=== PATIENT | male | born 1975 | race Caucasian/White ===

== ENCOUNTER 2024-05-10 18:07 | Inpatient (IN) | payer MEDICARE ==
[2024-05-10] MEDS ORDERED: ACETAMINOPHEN TAB 325 MG TAB PO PRN (19:00)
[2024-05-10] MEDS ORDERED: LORazepam 1 MG TAB PO PRN ×3 (19:00)
[2024-05-10] MEDS ORDERED: IBUPROFEN 600 MG TAB PO PRN (19:00)
[2024-05-10] MEDS ORDERED: MAGNESIUM HYDROXIDE 2,400 MG/30 ML CUP PO PRN (19:00)
[2024-05-10] MEDS: QUEtiapine 200 MG TAB PO SCH (21:53)
[2024-05-10] MEDS: DIVALPROEX ER 500 MG TAB.ER.24H PO SCH (21:53)
--- NOTE | 2024-05-10 22:37 | P.CONS ---
History of Present Illness - Reason for Consult Consult date: 05/10/24 medical management - History of Present Illness Patient is a 49-year-old male with a past medical history of hypertension, schizoaffective disorder and social nicotine use was transferred from [facility]. He sought care due to emotional distress regarding his father's of 10 years ago and feels that he is becoming close to feeling suicidal due to the depression and anxiety he was experiencing. He voluntarily wanted inpatient psychiatric treatment and has been without his medication on her past few days. At current, he has no medical complaints. He denies fevers, chills, tremors, weakness, headaches, LOC, chest pain, shortness of breath, or abdominal pain. Imaging: None. Laboratory evaluation: WBC 4.8, hemoglobin 12.8, hematocrit 37.4, platelet count 281, sodium 134, potassium 4.6, chloride 98, bicarb 19.3, BUN 9.7, creatinine 0.9, glucose 84, valproic acid 19.9, ethanol level 68. UDS shows positive for barbiturates and cannabinoids. Urinalysis ketones 80, trace proteins, bacteria negative, leukocyte esterase negative, nitrite negative. Review of systems: Pertinent positives and negatives as discussed in HPI, a complete review of systems was performed and all other systems are negative. Physical examination: Vital signs reviewed General: non toxic, no distress, appears at stated age Derm: no unusual rashes/lesions, warm Head: atraumatic, normocephalic, symmetric Eyes: EOMI, anicteric sclera, pupils equal round reactive to light ENT: Nose and ears atraumatic Neck: No cervical lymphadenopathy, trachea midline, supple Mouth: no lip lesion, mucus membranes moist Cardiovascular: S1S2 reg, no murmur Lungs: CTA bilateral, no rhonchi, no rales, no accessory muscle use Abdominal: soft, nontender to palpation, no guarding Ext: muscle strength 5 out of 5 in all 4 extremities grossly, no gross muscle atrophy, no contractures, positive dorsalis pedis pulse bilateral, no edema Neuro: CN II-XI grossly intact, no gross focal neuro deficits Psych: Alert, oriented Assessment/Plan: Benign essential hypertension: Norvasc 5 mg p.o. daily Metabolic acidosis due to alcohol intake: Patient denies mentioning last EtOH drink. Serum EtOH 68 bicarb 19.3. Fall precautions. Ativan per CIWA protocol. Thiamine 100 mg p.o. daily Hyponatremia due poor nutrition: Sodium 134, patient stable and asymptomatic, encourage feeding and hydration Schizoaffective disorder: Defer management to psychiatry service We appreciate being part of this patient's care. Thank you for this consult. Past Medical History Past Medical History: No Reported History History of Any Multi-Drug Resistant Organisms: None Reported Past Surgical History: No Surgical Hx Reported Past Anesthesia/Blood Transfusion Reactions: No Reported Reaction Past Psychological History: Schizoaffective Disorder Smoking Status: Current every day smoker Past Alcohol Use History: Daily Past Drug Use History: Marijuana - Past Family History Father Family Medical History: Unable to Obtain Mother Family Medical History: Unable to Obtain Medications and Allergies Home Medications Medication Instructions Recorded Confirmed Type DULoxetine HCL [Cymbalta] 30 mg PO DAILY 05/10/24 05/10/24 History Divalproex ER [Depakote ER] 500 mg PO BID 05/10/24 05/10/24 History Folic Acid 1 mg PO DAILY 05/10/24 05/10/24 History Multivitamins, Thera [Multivitamin 1 tab PO DAILY 05/10/24 05/10/24 History (formulary)] QUEtiapine FUMARATE [SEROquel] 200 mg PO HS 05/10/24 05/10/24 History QUEtiapine [SEROquel] 100 mg PO BID 05/10/24 05/10/24 History Thiamine [Vitamin B-1] 100 mg PO DAILY 05/10/24 05/10/24 History amLODIPine [Norvasc] 5 mg PO DAILY 05/10/24 05/10/24 History Allergies Allergy/AdvReac Type Severity Reaction Status Date / Time Penicillins AdvReac Unknown Verified 05/10/24 18:58 Physical Exam Vitals: Vital Signs Temp Pulse Resp BP Pulse Ox 05/10/24 20:52 98.1 F 87 18 133/70 98 Intake and Output 05/10/24 05/10/24 05/10/24 06:59 14:59 22:59 Other: Weight 78.245 kg Assessment and Plan Assessment: I have seen and evaluated the patient today. I Discussed the case with the resident and agree with the resident's findings I edited the assessment and plan as necessary as documented in the resident's note.
[2024-05-11 07:48] LABS: Basophils % (A) 1 %; Eosinophils # (A) 0.3 k/uL (0-0.7); Eosinophils % (A) 6 %; HGB 13.6 gm/dL (13.0-17.5); Lymphocytes # (A) 1.1 k/uL (1.0-4.8); Lymphocytes % (A) 27 %; MCHC 33.1 g/dL (31.0-37.0); MCV 96.9 fL (80.0-100.0); Mean Platelet Volume 7.5; Monocytes # (A) 0.3 k/uL (0-1.0); Monocytes % (A) 8 %; Neutrophils # (A) 2.4 k/uL (1.3-7.7); Neutrophils % (A) 56 %; Platelet Count 277 k/uL (150-450); RBC 4.24 m/uL (4.30-5.90); RDW 13.4 % (11.5-15.5); WBC 4.2 k/uL (3.8-10.6)
[2024-05-11 08:05] LABS: ALT 50 U/L (4-49); AST 56 U/L (17-59); African American GFR (CKD) >90 (>60 ml/min/1.73 sqM); Albumin 4.1 g/dL (3.5-5.0); Alkaline Phosphatase 58 U/L (38-126); Anion Gap 4 mmol/L; Blood Urea Nitrogen 13 mg/dL (9-20); Calcium 9.8 mg/dL (8.4-10.2); Carbon Dioxide 33 mmol/L (22-30); Chloride 104 mmol/L (98-107); Glucose 88 mg/dL (74-99); Non-African American GFR(CKD) >90 (>60 ml/min/1.73 sqM); Potassium 4.4 mmol/L (3.5-5.1); Sodium 141 mmol/L (137-145); Total Bilirubin 0.7 mg/dL (0.2-1.3); Total Protein 6.9 g/dL (6.3-8.2)
[2024-05-11] MEDS: QUEtiapine 100 MG TAB PO SCH (09:47)
[2024-05-11] MEDS: amLODIPine 5 MG TAB PO SCH (09:47)
[2024-05-11] MEDS: FOLIC ACID 1 MG TAB PO SCH (09:48)
[2024-05-11] MEDS: DULoxetine HCL 30 MG CAPSULE.DR PO SCH (09:48)
[2024-05-11] MEDS: THIAMINE 100 MG TAB PO SCH (09:48)
[2024-05-11] MEDS: MULTIVITAMINS, THERA 1 EACH TAB PO SCH (09:48)
[2024-05-11 13:03] LABS: Chol/HDL Ratio 2.16 Ratio; LDL Cholesterol,Calculated 81.1 mg/dL (0.0-131.0); VLDL Calculation 12.82 mg/dL (5.00-40.00)
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
[2024-05-12] MEDS: MAG HYDROX/AL HYDROX/SIMETH 355 ML BOTTLE PO PRN (00:04)
--- NOTE | 2024-05-12 18:57 | P.PN ---
Progress Note - Text Progress Note Date: 05/12/24 Interval History: Patient was seen resting in the lounge and was directable and agreeable to speak with staff writer in the office. He reports mood is "ok, alright", denies any concerns today. When asked why he has been sleeping in the chair in the lounge this morning, he denies over-sedation from the Seroquel and states he is adjusting to his medications and catching up on sleep since he had not slept well prior to admission. At this time patient denies any suicidal or homicidal ideations, intent or plan. Patient denies any auditory, visual hallucinations and denies any paranoia or delusions. Patient denies any side effects from the medications and has been compliant with meds. Mental Status Exam: General Appearance: Patient appears to be stated age, well-nourished adult male, dressed in casual attire. Behavior: Patient is calmly standing without any agitated behavior. Speech: Patient's speech is fluent and non-pressured. Mood/Affect: Mood is improving mildly, affect is congruent and constricted. Suicidality/Homicidality: Patient denies having any suicidal or homicidal ideation intent or plan. Perceptions: Patient denies any visual hallucinations and denies any auditory hallucinations. Though content/process: There is no evidence of any delusional thought content and thought process is linear and goal-directed. Memory and concentration: AOX3, grossly intact for the purposes of this session Judgment and insight: Improving mildly Assessment Bipolar disorder Alcohol use disorder Plan: -Patient continues to meet criteria for inpatient psychiatric admission for symptom stabilization and safety. -Medications: Continue Depakote ER 500 mg BID for mood. Check Depakote level. Continue Cymbalta 30 mg daily for depressed mood, Continue Seroquel 100 mg BID PLUS 200 mg QHS for mood/sleep. Monitor for over- sedation and adjust dose as needed. -CIWA protocol -When necessary Ativan and Haldol for agitation/aggression. -SW on board for discharge planning. Encouraged the patient to participate in milieu.
[2024-05-13 06:51] VITALS: RESP 16
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
[2024-05-14] MEDS: QUEtiapine 100 MG TAB PO SCH (21:27)
[2024-05-15 09:58] VITALS: BP 107/75; PULSE 117; TEMP 98.1
--- NOTE | 2024-05-15 11:48 | P.DS ---
Providers Date of admission: 05/10/24 20:16 Expected date of discharge: 05/15/24 Attending physician: Joshua Perez MD Consults: 05/10/24 19:00 Consult Physician Routine Consulting Provider: Dar Cervantes Consult Reason/Comments: H and P Do you want consulting provider notified?: Yes Primary care physician: Stated None - Discharge Diagnosis(es) (1) Alcohol abuse Current Visit: Yes Status: Acute Priority: Medium (2) Bipolar 1 disorder Current Visit: Yes Status: Chronic Priority: High Hospital Course: Admission HPI: Admission note was completed by Dr. Tran "Patient is a 49-year-old male with a past medical history of hypertension, schizoaffective disorder and social drinking nicotine use was transferred from [facility]. He sought care due to emotional distress regarding his father's of 10 years ago and feels that he is becoming close to feeling suicidal due to the depression and anxiety he was experiencing. He voluntarily wanted inpatient psychiatric treatment and has been without his medication on her past few days. At current, he has no medical complaints. He denies fevers, chills, tremors, weakness, headaches, LOC, chest pain, shortness of breath, or abdominal pain.the patient carries a diagnosis of schizoaffective and drinks alcohol on a daily basis." Hospital course: Upon admission to the unit patient was [directable and agreeable to commence treatment and signed adult voluntary form] . Patient was cooperative and engaging. Initially he refused to continue his Depakote instead we agreed upon increasing Seroquel which he responded to positively. Seroquel was increased to 300 mg at night and the 100 mg was continued twice daily. Additionally the patient was continued on the Cymbalta 30 mg once daily. Patient got along well with other patients on the unit and followed unit protocol. Patient was compliant with the medications and denied any side effects throughout hospital course. Patient spoke of [his] stressors and engaged in therapy both group and individual. Patient was also seen by medical team for history and physical exam. Throughout the course of the hospitalization patient gradually improved with regards to [mood, anxiety], sleep and [returned back to their baseline level of functioning][became more future oriented with improved insight and judgment]. On the day of discharge patient denied any suicidal or homicidal ideations intent or plan denied any auditory or visual hallucinations. Patient endorsed wanting to live back in his car. The patient denied any access to guns or weapons. Patient denied any paranoia and did not endorse any delusions. Patient does have a significant history of substance abuse [and] was counseled on abstaining from all substances including alcohol and marijuana. [Patient was offered however declined inpatient substance-abuse rehab.] [Patient elected to do outpatient substance use treatment program through their outpatient provider.] Patient was also counseled on the medications and need for regular compliance and was encouraged to follow-up with their outpatient appointment for mental health and also for primary care. [Prior to discharge a family meeting w ill be arranged by social services analyst to answer any questions and ensure safety upon discharge incuding making sure that guns/weapons are either removed from the home or locked away.] [] Mental status exam: General Appearance: Patient appears to be older stated age is alert, pleasant, and cooperative. Patient is in no acute distress and has improved hygiene and grooming Behavior: Patient is calmly seated without any agitated behavior. Speech: Patient's speech is fluent and nonpressured. Mood/Affect: Patient reports their mood is "[better][good]", affect is congruent and euthymic. Suicidality/Homicidality: Patient denies having any suicidal or homicidal ideation intent or plan. Perceptions: Patient denies any auditory or visual hallucinations. Though content/process: There is no evidence of any delusional thought content and thought process is linear and goal-directed. [more future oriented] Memory and concentration: AOX3, grossly intact for the purposes of this session. Judgment and insight: Fair judgment and insight improved with guarded prognosis Impression: Patient somewhat ambiguous about his next steps encouragement was made to have a plan. Patient was hyperfocused on getting his car. He wishes to return to [place] will follow-up with mental health there. At this point it is felt that the patient stable enough to follow through with this process. Plan: -Continue with discharge today as patient has improved and stabilized psychiatrically and is not currently an imminent threat to themself and/or others. [Patient will remain at chronically elevated risk for harm to self and/or others due to their impulsivity and substance abuse.] -Continue medications: Cymbalta, Seroquel. -Patient was counseled on the need for medication compliance and appropriate follow-up at mental health and also primary care for medical issues. Patient verbalized understanding and agreed. -Social work to [help coordinate patients discharge today. also to ensure safe home environment that guns/weapons are either removed from the home or locked away. Social work also to arrange for patients follow up appointments [with [facility]] for psychiatric care along with follow up with primary care provider. -Patient counseled on abstaining from recreational drugs and marijuana and alcohol. Was informed/educated on the adverse effects on their physical and mental health. Patient verbally agreed and understood. [Patient was offered substance abuse treatment however declined at this time.] -Patient was instructed to return to the hospital or seek immediate medical care if their psychiatric or medical symptoms do worsen or reoccur. Patient Condition at Discharge: Fair Plan - Discharge Summary Discharge Rx Participant: Yes New Discharge Prescriptions: New QUEtiapine [SEROquel] 300 mg PO HS 30 Days #30 tab Continue Multivitamins, Thera [Multivitamin (formulary)] 1 tab PO DAILY DULoxetine HCL [Cymbalta] 30 mg PO DAILY 30 Days #30 cap QUEtiapine [SEROquel] 100 mg PO BID 30 Days #60 tab amLODIPine [Norvasc] 5 mg PO DAILY Folic Acid 1 mg PO DAILY 30 Days #30 tab Thiamine [Vitamin B-1] 100 mg PO DAILY 30 Days #30 tab Discontinued QUEtiapine FUMARATE [SEROquel] 200 mg PO HS Divalproex ER [Depakote ER] 500 mg PO BID Discharge Medication List Multivitamins, Thera [Multivitamin (formulary)] 1 tab PO DAILY 05/10/24 [History] amLODIPine [Norvasc] 5 mg PO DAILY 05/10/24 [History] DULoxetine HCL [Cymbalta] 30 mg PO DAILY 30 Days #30 cap 05/15/24 [Rx] Folic Acid 1 mg PO DAILY 30 Days #30 tab 05/15/24 [Rx] QUEtiapine [SEROquel] 100 mg PO BID 30 Days #60 tab 05/15/24 [Rx] QUEtiapine [SEROquel] 300 mg PO HS 30 Days #30 tab 05/15/24 [Rx] Thiamine [Vitamin B-1] 100 mg PO DAILY 30 Days #30 tab 05/15/24 [Rx] [facility] 1:30 pm Discharge Disposition: HOME SELF-CARE
== END 2024-05-15 13:18 | disposition home or self-care (01) | DRG 885 ==
LOC: 3MHU 20:16
PROVIDERS: ADMIT Psychiatry & Neurology Psychiatry; ATTEND Psychiatry & Neurology Psychiatry
DX: F31.60 Bipolar disorder, current episode mixed, unspecified (principal); E87.1 Hypo-osmolality and hyponatremia; E87.20 Acidosis, unspecified; F10.10 Alcohol abuse, uncomplicated; F17.200 Nicotine dependence, unspecified, uncomplicated; F25.9 Schizoaffective disorder, unspecified; F41.9 Anxiety disorder, unspecified; I10 Essential (primary) hypertension; Y90.3 Blood alcohol level of 60-79 mg/100 ml; Z62.819 Personal history of unspecified abuse in childhood; Z79.899 Other long term (current) drug therapy
CPT/HCPCS: 80053; 80061; 80164; 83036; 84443; 85025